=== PATIENT | female | born 1970 | race Caucasian/White ===

== ENCOUNTER 2017-01-24 05:44 | Emergency (ER) | payer OTHER ==
[2017-01-24 05:44] VITALS: BMI 23.3
--- NOTE | 2017-01-24 06:06 | ED PDOC ---
Arrival/HPI - History of Present Illness Time/Duration: > week Symptom Onset: Gradual Symptom Course: Unchanged Quality: Aching Severity Level: 8 - General Chief Complaint: Abdominal Pain Time Seen by Provider: 01/24/17 05:58 - History of Present Illness Narrative History of Present Illness (Text): 01/24/17 06:37 46 yo F w no past medical history on no chronic medications at home presents to ER with 10 day h/o skin lesion RLQ. Patient denies any h/o trauma to the area. States she first noticed it approximately 10 days ago, she has been picking at it, had some yellow discharge. States the pain has been worsening, thus prompting her ER visit today. Admits to intermittent subjective fevers, denies chills. Denies h/o pervious similar problems. Denies CP, SOB, abd pain, n/v/d/c , other rashes, recent bug bites, trauma. (Astrid Isabel) Past Medical History - Provider Review Nursing Documentation Reviewed: Yes - Infectious Disease Hx of Infectious Diseases: None - Tetanus Immunization Tetanus Immunization: Unknown - Past Medical History Past Medical History: Non-Contributing - Psychiatric Hx Depression: Yes Hx Emotional Abuse: No Hx Physical Abuse: No - Surgical History Hx Section: Yes - Suicidal Assessment Feels Threatened In Home Enviroment: No Family/Social History Family/Social History: Unknown Family HX Allergies/Home Meds Allergies/Adverse Reactions: Allergies No Known Allergies Allergy (Verified 11/12/13 11:26) Review of Systems - Physician Review All systems were reviewed & negative as marked: Yes - Review of Systems Constitutional: Fevers (intermittent subjective). absent: Fatigue Eyes: absent: Vision Changes, Photophobia Respiratory: absent: SOB, Cough Cardiovascular: absent: Chest Pain, Palpitations, Edema, Calf Pain, MENA Gastrointestinal: absent: Abdominal Pain, Constipation, Diarrhea, Nausea, Vomiting Genitourinary Female: absent: Dysuria, Frequency Musculoskeletal: absent: Arthralgias, Back Pain, Neck Pain, Myalgias Skin: Skin Lesions (induated, erythematous, edematous lesion on skin right lower abdomen). absent: Pruritis Neurological: absent: Headache, Dizziness Endocrine: absent: Diaphoresis Hemo/Lymphatic: Normal Psychiatric: Normal Physical Exam Temperature: Afebrile Blood Pressure: Normal Pulse: Regular Respiratory Rate: Normal Appearance: Positive for: Well-Appearing, Non-Toxic, Uncomfortable Pain Distress: Mild Mental Status: Positive for: Alert and Oriented X 3 - Systems Exam Head: Present: Atraumatic, Normocephalic Pupils: Present: PERRL Extroacular Muscles: Present: EOMI Conjunctiva: Present: Normal. No: Injected, Icteric Ears: Present: Normal Mouth: Present: Moist Mucous Membranes Neck: Present: Normal Range of Motion Respiratory/Chest: Present: Clear to Auscultation, Good Air Exchange. No: Respiratory Distress, Accessory Muscle Use, Wheezes, Rhonchi Cardiovascular: Present: Regular Rate and Rhythm, Normal S1, S2. No: Murmurs Abdomen: Present: Normal Bowel Sounds. No: Tenderness, Distention, Peritoneal Signs, Rebound, Guarding Back: Present: Normal Inspection. No: CVA Tenderness Upper Extremity: Present: Normal Inspection, NORMAL PULSES, Capillary Refill < 2s. No: Cyanosis, Edema Lower Extremity: Present: Normal Inspection, NORMAL PULSES, Capillary Refill < 2 s. No: Edema, CALF TENDERNESS Neurological: Present: GCS=15, CN II-XII Intact, Speech Normal Skin: Present: Warm, Dry, Rashes (cellulitis RLQ abdomen -- induated, erythematous, warm, mildly edematous ) Psychiatric: Present: Alert, Oriented x 3, Normal Insight, Normal Concentration Vital Signs Temp Pulse Resp BP Pulse Ox 01/24/17 09:14 66 18 109/69 99 01/24/17 07:47 66 18 107/69 98 01/24/17 06:31 98.9 F 70 18 139/80 97 Medical Decision Making ED Course and Treatment: 01/24/17 06:46 46 yo F with no medical history presents with probable cellulitis RLQ abdominal skin and subjective intermittent fevers. Labs, Tylenol. (Astrid Isabel) 01/24/17 07:00 Pt. was seen initially and evaluated with medical physiologist.Agree with physical exam,assessment and workup.Case endorsed to for further follow up/ reassessment and final disposition. (Hector Moseley) - Lab Interpretations Microbiology Results: Microbiology Results 01/24/17 07:00 Blood Blood Culture - Preliminary NO GROWTH AFTER 24 HOURS 01/24/17 07:00 Blood Blood Culture - Preliminary NO GROWTH AFTER 24 HOURS Lab Results: 01/24/17 07:00 01/24/17 07:00 Lab Results 01/24/17 07:00: WBC 8.9, RBC 4.40, Hgb 12.8, Hct 37.7, MCV 85.7, MCH 29.1, MCHC 34.0, RDW 14.2, Plt Count 188, MPV 12.1 H, Gran % 67.6, Lymph % (Auto) 21.6 L, [place] % (Auto) 9.4 H, Eos % (Auto) 1.2 L, Baso % (Auto) 0.2, Gran # 6.00, Lymph # 1.9, [place] # 0.8 H, Eos # 0.1, Baso # 0.02, Sodium 139, Potassium 4.0, Chloride 105, Carbon Dioxide 25, Anion Gap 13, BUN 12, Creatinine 0.6, Est GFR ( Amer) > 60, Est GFR (Non-Af Amer) > 60, Random Glucose 94, Calcium 9.1, Total Bilirubin 0.5, AST 31, ALT 29, Alkaline Phosphatase 71, Total Protein 8.1 , Albumin 4.0, Globulin 4.1, Albumin/Globulin Ratio 1.0 L - Medication Orders Current Medication Orders: Discontinued Medications Acetaminophen (Tylenol 325mg Tab) 650 mg PO STAT STA Stop: 01/24/17 06:36 Last Admin: 01/24/17 06:50 Dose: 650 MG MAR Pain/Vitals Document 01/24/17 06:50 KKL (Rec: 01/24/17 07:18 KKL [facility] [id number] Pain Reassessment Is This A Pain ReAssessment? No Sleep Is patient sleeping during reassessment? No Presence of Pain Presence of Pain Yes Pain Scale Used Pain Scale Used Numeric Location Left, Right or Bilateral Right Upper or Lower Lower Pain Location Body Site Abdomen Description Constant Intensity 8 Scale Used Numeric Site Observation Abscess-like area with redness around area. Disposition/Present on Arrival - Present on Arrival Any Indicators Present on Arrival: No History of DVT/PE: No History of Uncontrolled Diabetes: No Urinary Catheter: No History of Decub. Ulcer: No History Surgical Site Infection Following: None - Disposition Have Diagnosis and Disposition been Completed?: Yes Disposition Time: 08:37 - Disposition Diagnosis: Cellulitis of abdominal wall Disposition: HOME/ ROUTINE Condition: GOOD Discharge Instructions (ExitCare): Cellulitis (ED) Additional Instructions: You MUST have your redness rechecked in 1-2 days. Return immediately if you develop increased redness, increased pain, fever/s chills, abdominal pain, nausea or vomiting, any persistent or worsening of symptoms. Use warm compresses to area as directed. Take antibiotic as directed. GET RECHECKED WITHIN 2 days. Prescriptions: Sulfamethoxazole/Trimethoprim [Bactrim DS 800 mg-160 mg] 1 tab PO BID #14 tab Referrals: [facility] [Outside] - Follow up with primary [facility] [place] - Follow up with primary PCP,NO [Primary Care Provider] - Follow up with primary Forms: WORK NOTE
[2017-01-24 06:40] VITALS: RESP 18; TEMP 98.9
[2017-01-24 07:18] LABS: ADD MANUAL DIFF? NO
--- NOTE | 2017-01-24 07:20 | ED PDOC ---
Physical Exam Vital Signs Temp Pulse Resp BP Pulse Ox 01/24/17 07:47 66 18 107/69 98 01/24/17 06:31 98.9 F 70 18 139/80 97 Medical Decision Making ED Course and Treatment: 01/24/17 07:00 Patient signed out to me by Dr. Moseley/Astrid pending labs, reassessment, and final disposition. Patient noted to have erythema to lower abdomen with no fluctuance or drainage. Patient is afebrile and non-toxic appearing. Total area appears 3 x 4 cm. At this time it does not appear to be a drainable abscess. Infection appears superficial, located to the abdominal wall. Will treat with antibiotics and stress follow-up with PMD in 1-2 days for reevaluation. - Lab Interpretations Lab Results: 01/24/17 07:00 01/24/17 07:00 Lab Results 01/24/17 07:00: WBC 8.9, RBC 4.40, Hgb 12.8, Hct 37.7, MCV 85.7, MCH 29.1, MCHC 34.0, RDW 14.2, Plt Count 188, MPV 12.1 H, Gran % 67.6, Lymph % (Auto) 21.6 L, [place] % (Auto) 9.4 H, Eos % (Auto) 1.2 L, Baso % (Auto) 0.2, Gran # 6.00, Lymph # 1.9, [place] # 0.8 H, Eos # 0.1, Baso # 0.02, Sodium 139, Potassium 4.0, Chloride 105, Carbon Dioxide 25, Anion Gap 13, BUN 12, Creatinine 0.6, Est GFR ( Amer) > 60, Est GFR (Non-Af Amer) > 60, Random Glucose 94, Calcium 9.1, Total Bilirubin 0.5, AST 31, ALT 29, Alkaline Phosphatase 71, Total Protein 8.1 , Albumin 4.0, Globulin 4.1, Albumin/Globulin Ratio 1.0 L - Medication Orders Current Medication Orders: Discontinued Medications Acetaminophen (Tylenol 325mg Tab) 650 mg PO STAT STA Stop: 01/24/17 06:36 Last Admin: 01/24/17 06:50 Dose: 650 MG MAR Pain/Vitals Document 01/24/17 06:50 KKL (Rec: 04/19/17 07:18 KKL [id number]) Pain Reassessment Is This A Pain ReAssessment? No Sleep Is patient sleeping during reassessment? No Presence of Pain Presence of Pain Yes Pain Scale Used Pain Scale Used Numeric Location Left, Right or Bilateral Right Upper or Lower Lower Pain Location Body Site Abdomen Description Constant Intensity 8 Scale Used Numeric Site Observation Abscess-like area with redness around area. - Scribe Statement The provider has reviewed the documentation as recorded by the Jarek Graham Provider Scribe Attestation: All medical record entries made by the Haliibe were at my direction and personally dictated by me. I have reviewed the chart and agree that the record accurately reflects my personal performance of the history, physical exam, medical decision making, and the department course for this patient. I have also personally directed, reviewed, and agree with the discharge instructions and disposition. Disposition/Present on Arrival - Present on Arrival Any Indicators Present on Arrival: No History of DVT/PE: No History of Uncontrolled Diabetes: No Urinary Catheter: No History of Decub. Ulcer: No History Surgical Site Infection Following: None - Disposition Have Diagnosis and Disposition been Completed?: Yes Diagnosis: Cellulitis of abdominal wall Disposition: HOME/ ROUTINE Disposition Time: 08:45 Patient Plan: Discharge Patient Problems: Current Active Problems Problem Status Diagnosed Cellulitis of abdominal wall Acute Condition: GOOD Discharge Instructions (ExitCare): Cellulitis (ED) Additional Instructions: You MUST have your redness rechecked in 1-2 days. Return immediately if you develop increased redness, increased pain, fever/s chills, abdominal pain, nausea or vomiting, any persistent or worsening of symptoms. Use warm compresses to area as directed. Take antibiotic as directed. GET RECHECKED WITHIN 2 days. Prescriptions: Sulfamethoxazole/Trimethoprim [Bactrim DS 800 mg-160 mg] 1 tab PO BID #14 tab Referrals: [facility] [Outside] - Follow up with primary [facility] at [facility] [place] [Outside] - Follow up with primary PCP,NO [Primary Care Provider] - Follow up with primary
[2017-01-24 07:26] LABS: BASO # 0.02 K/mm3 (0.0-2.0); BASO % 0.2 % (0.0-3.0); EOS # 0.1 (0.0-0.7); EOS % 1.2 % (1.5-5.0); GRAN % 67.6 % (50.0-68.0); HEMATOCRIT 37.7 % (36.0-48.0); LYMPH # 1.9 (1.2-3.4); LYMPH % 21.6 % (22.0-35.0); MEAN CELL VOLUME 85.7 fL (80.0-105.0); MEAN CORPUSCULAR HEMOGLOBIN 29.1 pg (25.0-35.0); MEAN PLATELET VOLUME 12.1 fl (7.0-11.0); MONO # 0.8 (0.1-0.6); MONO % 9.4 % (1.0-6.0); PLATELET COUNT 188 10^3/uL (120.0-450.0); RED CELL DISTRIBUTION WIDTH 14.2 % (11.5-14.5); WHITE BLOOD COUNT 8.9 10^3/ul (4.5-11.0)
[2017-01-24 07:47] VITALS: PULSE 66
[2017-01-24 08:51] LABS: ALKALINE PHOSPHATASE 71 U/L (38-133); ALT/SGPT 29 U/L (7-56); AST/SGOT 31 U/L (15-39); BILIRUBIN,TOTAL 0.5 mg/dL (0.2-1.3); BLOOD UREA NITROGEN 12 mg/dL (7-21); CALCIUM 9.1 mg/dL (8.4-10.5); CARBON DIOXIDE 25 mmol/L (21-33); CHLORIDE 105 mmol/L (95-110); GFR AFRICAN-AMERICAN > 60; GLUCOSE,RANDOM 94 mg/dL (70-110); SODIUM 139 mmol/L (132-148); TOTAL PROTEIN 8.1 g/dL (5.8-8.3)
[2017-01-24 09:15] VITALS: BP 109/69; O2SAT 99
== END 2017-01-24 09:14 | disposition home or self-care (01) ==
LOC: ED 05:44
DX: L03.311 Cellulitis of abdominal wall (principal)